=== PATIENT | female | born 1955 | race Caucasian/White ===

== ENCOUNTER 2019-06-02 21:55 | Emergency (ER) | payer BC ==
[~2019-06-02] VITALS: Ht 172.7 cm; Wt 100.0 kg
[~2019-06-02 21:55] MED LIST: ADLT ASA LOW81 MG PO; HYDROCHLOROT25 MG PO; KLOR-CON 1010 ME1 PO; METO50TA52 PO; MIRALAX3350 N1 OR; RESVERATROL50 MG PO; SELENIUM50 MCG PO; SENNA-TABS8.6 MG PO; VITAMIN C500 M6 PO; VITAMIN E PO; [UNRECOGNIZED DRUG - OTHER] PO; [UNRECOGNIZED DRUG - OTHER] PO; [UNRECOGNIZED DRUG - REMARK]
[2019-06-02] MEDS ORDERED: LOPRESSOR50 M1 PO (22:21)
[2019-06-02] MEDS ORDERED: PLAVIX75 MG PO (22:21)
[2019-06-02] MEDS ORDERED: HYDROCHLOROT25 MG PO (22:22)
[2019-06-02 22:55] LABS: HEMATOCRIT 38.7 % (37.0-47.0); HEMOGLOBIN 13.1 g/dl (12.0-16.0); IMMATURE GRANULOCYTES 0.4 % (0.0-5.0); MEAN CELL VOLUME 83.9 fL CALC (80.0-100.0); MEAN CORPUSCULAR HGB 28.4 pG CALC (26.0-32.0); MEAN CORPUSCULAR HGB CONC 33.9 g/L CALC (32.0-36.0); NEUT# 7.58 thou/uL (2.00-7.15); RED BLOOD COUNT 4.61 mill/uL (4.20-5.60); RED CELL DISTRI WIDTH 13.1 % (11.5-15.5)
[2019-06-02 23:06] LABS: ALBUMIN 4.5 g/dL (3.2-5.0); ALKALINE PHOSPHATASE 78 u/l (38-126); AMYLASE 45 u/l (30-110); ANION GAP 15 (6-22 (CALC)); BILIRUBIN, TOTAL 0.7 mg/dL (0.0-1.4); BUN 10 mg/dL (8-23); BUN/CREATININE RATIO 13 (12-20 (CALC)); CARBON DIOXIDE 28 mmol/l (22-30); CHLORIDE 94 mmol/l (95-108); CREATININE 0.8 mg/dL (0.5-1.0); GFR > 60 ML/MIN (>=60 (CALC)); GFR FOR AFR.AMER. > 60 ML/MIN (>=60 (CALC)); LIPASE 139 u/l (23-300); POTASSIUM 3.5 mmol/l (3.5-5.1); SGOT/AST 29 u/l (9-36); SODIUM 133 mmol/l (137-146); TOTAL PROTEIN 7.3 g/dL (6.3-8.2)
[2019-06-03 00:55] VITALS: BP 170/82
== END 2019-06-03 00:58 | disposition home or self-care (01) | DRG 395 ==
LOC: ED 21:55
PROVIDERS: Emergency Medicine
DX: K62.89 Other specified diseases of anus and rectum (principal)